=== PATIENT | male | born 1980 | race African-American/Black ===

== ENCOUNTER 2016-11-11 20:39 | Emergency (ER) | payer OTHER ==
[~2016-11-11 20:39] MED LIST: AMOX1TAB15; HYDR-3652; IBUP-1482; TADA5TAB2
== END 2016-11-11 22:43 | disposition home or self-care (01) ==
DX: R07.89 Other chest pain (principal); F17.200 Nicotine dependence, unspecified, uncomplicated; Z88.5 Allergy status to narcotic agent
CPT/HCPCS: 36415; 71010; 80048; 84484; 85025; 93005; 99285; A4606; Z7610